=== PATIENT | female | born 1985 | race Caucasian/White ===

== ENCOUNTER 2022-06-16 10:57 | Emergency (ER) | payer BC, MEDICAID, SELFPAY ==
[2022-06-16 11:06] VITALS: BP 162/82; PULSE 108; RESP 18; TEMP 36.7; O2SAT 96; BMI 30.2
--- NOTE | 2022-06-16 11:22 | W.ED.WOUNDLC ---
HPI - Wound/Laceration General: Chief Complaint: Wound/Laceration Stated Complaint: right hand lac Time Seen by Provider: 06/16/22 11:18 Source: patient Mode of arrival: ambulatory Limitations: no limitations History of Present Illness: This 36-year-old lady presents to the ER for evaluation of right hand laceration. She was doing dishes this morning and a glass cup she was washing slipped out of her hand and hit the [place] countertop. Out of reflex, she attempted to grab the cup and it slit her hand at the webspace between the right thumb and index finger. She denies any other injuries. Patient states that she is up-to-date with tetanus. Review of Systems General: Reports: 10 or more systems reviewed and unremarkable except in HPI and below Skin/Breast: Reports: other (Laceration of the right hand.) Physical Exam Const: COMMON NORMALS: no acute distress, patient oriented x3 and no limitations Resp: COMMON NORMALS: normal respiratory effort, No retractions and No use of accessory muscles Cardio: COMMON NORMALS: regular rate, regular rhythm and No murmurs present (Cardio) RATE: regular rate RHYTHM: regular rhythm Extremity: GENERAL: Yes normal exam except as noted EXTREMITY IMAGE (FRONT): 1. 8 cm laceration between the web of the thumb and index finger. Active bleeding from the wound. No sign of tendon involvement. Full range of flexion, extension, abduction and abduction of the thumb. Full range of movement in the rest of the fingers. No distal neurodeficit. Neuro: COMMON NORMALS: patient oriented x3 and no focal motor deficits Procedures Laceration Laceration 1: Site: hand Size (cm): 8 Description: irregular Depth: simple, single layer Local Anesthetic: lidocaine 1% Amount of anesthesia used (mL): 9 Pre-repair: wound explored, irrigated extensively and deep structures intact Skin layer closed with: nylon Size (cm): 4-0 Number of sutures: 7 Technique: simple, interrupted Course Vital Signs: Vital signs: Vital Signs Temperature 98.1 F 06/16/22 11:06 Pulse Rate 108 H 06/16/22 11:06 Respiratory Rate 18 06/16/22 11:06 Blood Pressure 162/82 06/16/22 11:06 Pulse Oximetry 96 06/16/22 11:06 Oxygen Delivery Me thod 06/16/22 11:06 MDM - Wound/Laceration Medical Decision Making Medical decision making: History as above. Wound was thoroughly washed with Betadine and normal saline. The full extent of the wound was explored with no sign of foreign body. Wound was closed with 4-0 nylon after local infiltration with lidocaine without epi. Patient advised on wound care. Return instructions provided. Discharge Plan Discharge Patient Disposition: Home Clinical Impression: Laceration Condition: Stable Prescriptions: New cephalexin 500 mg tablet 500 mg PO TID Qty: 15 0RF tramadol 50 mg tablet 50 mg PO Q6H PRN (Reason: pain) Qty: 20 0RF Discharge Orders: Discharge ED (Routine); Ordered 06/16/22 Ordered By: Jax Aguilar Referrals: Kian Correa MD [Primary Care Provider] - Discharge Diet: Usual diet Discharge Activity: Resume usual activity Patient Instructions: Opioid Safety, Pain Management Activity Restrictions/Additional Instructions: Keep wound clean and dry for 48 hours. Do not let water touch it during that time. After that, you may wash wound with mild soap and water and dab it dry afterwards. Follow-up with your primary care physician in 10 to 14 days for removal of stitches. Take Keflex as prescribed. Take tramadol as needed for pain. Follow-up with your primary care physician or return to the ER if you develop signs of infection like increased redness, swelling, fever or purulent discharge. Coding Level of Care Code ED [employer] for [facility]
[2022-06-16] MEDS: cephALEXin 500 mg Capsule PO (12:31)
== END 2022-06-16 12:40 | disposition home or self-care (01) ==
PROVIDERS: Emergency Provider Family Medicine; PCP Family Medicine
DX: S61.411A Laceration without foreign body of right hand, initial encounter (principal); W25.XXXA Contact with sharp glass, initial encounter; Y93.G1 Activity, food preparation and clean up
CPT/HCPCS: 12004; 99283